=== PATIENT | female | born 1960 | race Caucasian/White ===

== ENCOUNTER 2020-12-14 08:07 | Day surgery (SDC) | payer OTHER ==
--- OUTSIDE RECORDS SUMMARY | 2020-12-14 08:11 | XMS REPORT | Clinical Summary ---
:1960 Author Organization [facility] Address [address] [place] [address] Care Team Providers Name Role Phone Asked, Pcp Primary Care Provider Unavailable Allergies No Known Active Allergies Medications No known medications Active Problems Not on file Surgical History Surgery Date Site/Laterality Comments ORTHOPEDIC SURGERY Medical History Medical History Date Comments Asthma Family History Medical History Relation Name Comments Asthma Mother Relation Name Status Comments Mother Social History Tobacco Use Types Packs/Day Years Used Date Former Smoker Quit: 1992 Smokeless Tobacco: Never Used Sex Assigned at Date Recorded Not on file Last Filed Vital Signs Not on file Plan of Treatment Health Maintenance Due Date Last Done Comments COVID-19 VACCINE (1 of 2) 1976 CERVICAL CANCER SCREENING 1981 BREAST CANCER SCREENING 2010 COLONOSCOPY SCREENING 2010 SHINGLES VACCINES (#1) 2010 INFLUENZA VACCINE 06/12/2020 Results Not on fileafter 12/14/2019 (Work) [id number] Advance Directives For more information, please contact: [phone] Type Date Recorded Patient Education Assistant Explanati on Advance Directives, Living Will and Medical Power of Instructor Ballroom D[employer]
--- OUTSIDE RECORDS SUMMARY | 2020-12-14 08:11 | XMS REPORT | Continuity of Care Document ---
:1960 Author Organization [facility] t Address [address] [place] [address] Care Team Providers Name Role Phone UNKNOWN Primary Care Physician Unavailable ANDRIA ALEXIS M.D. Attending Clinician Unavailable ANDRIA ALEXIS M.D. Admitting Clinician Unavailable Payers Payer Name Policy Type Policy Number Effective Date Expiration Date S ource Problems This patient has no known problems. Allergies, Adverse Reactions, Alerts Allergy Allergy Status Severity Reaction(s) Onset Inactive Treating Comm ents Source Name Type Date Date Clinician tree and DA Active [place] 2017-11 [facility]-04 [place] [facility] 00:[facility]: [facility] animal DA Active [place] 2017-11 [facility]-04 [place] [facility] Family History Family Member Diagnosis Comments Start Date Stop Date Source Natural mother Asthma [facility] Social History Social Habit Start Date Stop Date Quantity Comments Source History of Current smoker [facility] tobacco use Sex Assigned At MD [place] on Tobacco use and 2019-01-02 2019-01-[address] [facility] ethodist exposure 00:00:00 00:00:00 Smoking Status Start Date Stop Date Source Former smoker 2019-01-02 00:00:00 2019-01-02 00:00:00 [place] [facility] Medications This patient has no known medications. Procedures This patient has no known procedures. Plan of Care Planned Activity Planned Date Details Comments Source Future Scheduled 2020-06-12 INFLUENZA VACCINE [place] [facility] 00:00:00 [code = INFLUENZA VACCINE] Future Scheduled 2010 BREAST CANCER [facility] Test 00:00:00 SCREENING [code = BREAST CANCER SCREENING] Future Scheduled 2010 COLONOSCOPY SCREENING [place] [facility] Test 00:00:00 [code = COLONOSCOPY SCREENING] Future Scheduled 2010 SHINGLES VACCINES [place] [facility] 00:00:00 (#1) [code = SHINGLES VACCINES (#1)] Future Scheduled 1981 [facility] malignant neoplasm of cervix (procedure) [code = 143062715] Future Scheduled 1976 COVID-19 VACCINE (1 [place] [facility] Test 00:00:00 of 2) [code = COVID-19 VACCINE (1 of 2)] Encounters Start End Encounter Admission Attending Care Care Encounter Source Date/Time Date/Time Type Type Clinicians Facility Department ID 2017-12-07 2017-12-07 Outpatient C ANDRIA ALEXIS [facility] MED [id number] [facility] 14:15:00 14:15:00 [place] Results This patient has no known results.
[2020-12-14 08:33] VITALS: O2SAT 99
[2020-12-14] MEDS ORDERED: Ringers Lactate 1,000 ML IV ONE (08:34)
[2020-12-14] MEDS ORDERED: MIDAZOLAM HCL 2 MG/2 ML INJ ONE (08:47)
[2020-12-14] MEDS ORDERED: FENTANYL CITR 100 MCG/2 ML ONE (08:47)
[2020-12-14] MEDS ORDERED: LIDOCAINE 1% MPF 5 ML VIAL ONE (08:47)
[2020-12-14] MEDS ORDERED: propofoL 200 MG/20 ML VIAL IV ONE (08:47)
[2020-12-14] MEDS ORDERED: KETOROLAC 30 MG/ML INJ ONE ×2 (09:28→11:51)
[2020-12-14] MEDS ORDERED: NA CHLORIDE 0.9% 1,000 ML ONE (11:08)
[2020-12-14] MEDS: LIDOCAINE 1% W/EPI 1:100,000 10 ML VIAL ONE ×2 (11:10→11:20)
--- NOTE | 2020-12-14 12:12 | OP ---
Date of Procedure: 12/14/2020 Surgeon: Yun Tellez MD Postoperative Diagnoses: Postmenopausal bleeding. Postoperative Diagnoses: Postmenopausal bleeding and endometrial polyp. Procedures Performed: Diagnostic hysteroscopy, dilatation and curettage, polypectomy. Anesthesia: MAC plus paracervical block. Specimens: Endometrial polyp and curettings. Complications: No complications. Drains: No drains. Condition: Stable. Findings: Cervix stenotic, uterus anteflexed, and canal anteverted. Polyp at the fundus completely resected with scissors. Endometrial lining unremarkable and thin. Indications Of Procedure: The patient is a 60-year-old female, postmenopausal, presented with bleedi ng. Transvaginal ultrasound was performed and her lining appeared to be thicker and heterogeneous, s o she was consented for endometrial sampling and brought to the hospital. All the complications incl uding bleeding, infection, perforation of the uterus were discussed with the patient and her here this morning. Description Of Procedure: After taking back to the operating room, she was placed in supine fashion on the operating table. MAC was given. Placed in a dorsal lithotomy position. Pelvic exam was perf ormed. Uterus was anteflexed. Vulva and vagina were prepped and draped in a sterile fashion. Anter ior lip injected with 1% lidocaine mixed with 1:100,000 epinephrine 5 cc and 4 and 8 o'clock position s of the cervical vaginal junction, 10 cc each. The anterior lip was grasped with 2 Allis clamps. D iagnostic hysteroscopy was performed with a SlimLine scope, 30 degree lens, normal saline for ___ traversing the cervical canal under direct visualization into the uterine cavity. The polyp was visualized. The diagnostic sheath was removed and operative sheath was placed. Scissors were passed through this and the base of the polyp was excised and the polyp retrieved with the help of polyp fo rceps. It was removed in its entirety. The scope was removed. Endometrial curettings were performe d with a #1 curette after dilating the cervix to 16-Armenian. Scant curettings were retrieved consiste nt with the findings. All the instruments were removed. Instrument, needle, and sponge counts were correct. 30 mg of Toradol intravenous was given prior to recovering the patient. She was taken to [facility] PACU in stable condition. She has 1 week followup appointment with me and the findings will be di scussed with the . CAMMIE/JACKIE Voice ID: [id number] Report ID: [id number]
[2020-12-14 19:05] VITALS: BP 145/55; TEMP 97.6
== END 2020-12-14 12:25 | disposition home or self-care (01) ==
LOC: OR 08:07
PROVIDERS: ATTEND Obstetrics & Gynecology
PROC: 0UDB8ZX Extraction of Endometrium, Via Natural or Artificial Opening Endoscopic, Diagnostic (ICD-10-PCS; 2020-12-14)
PROC: 0UB98ZX Excision of Uterus, Via Natural or Artificial Opening Endoscopic, Diagnostic (ICD-10-PCS; principal; 2020-12-14 09:30)
DX: N95.0 Postmenopausal bleeding (principal); N84.0 Polyp of corpus uteri; R10.2 Pelvic and perineal pain; M54.5 Low back pain; R87.9 Unspecified abnormal finding in specimens from female genital organs; Z20.822 Contact with and (suspected) exposure to COVID-19
CPT/HCPCS: 88305; 58558; U0002; J2704; J2250; J3010; J7120; J7030